=== PATIENT | male | born 1955 | race African-American/Black ===

== ENCOUNTER 2020-07-04 11:47 | Inpatient (IN) ==
[2020-07-04] MEDS ORDERED: SODIUM CHLORIDE 0.9% 1000ML 1,000 ML IV ONE (12:07)
[2020-07-04] MEDS ORDERED: DEXAMETHASONE SOD INJ 10 MG/ML VIAL IV ONE (12:07)
--- NOTE | 2020-07-04 12:12 | Emergency Department Note ---
Impression & Plan COVID-19, Acute respiratory failure with hypoxia, Community acquired pneumonia ED Provider Note NAME: ESTEFANIA [id number] DEON AGE: 64 SEX: M : 1955 ARRIVES VIA: Ambulance INFORMANT: Patient ED PROVIDER(S): Renato Bolton DO CHIEF COMPLAINT: Cough and shortness of HPI: Patient is a 64-year-old male who presents here for cough and shortness of breath. All of his symptoms started over a week ago Wednesday with several days of diffuse myalgias and arthralgias. On Wednesday he lost his taste and smell and started with a cough and some mild shortness of breath. This is gradually progressed. History of COPD. Was a previous smoker but has not smoked in the past several years. Denies any chest pain. Only has chest pain with coughing. Denies any belly pain nausea vomiting or diarrhea. No dysuria urgency or frequency. No other exacerbating remitting factors. ROS: See above HPI for pertinent positives & negatives. A total of 10 systems reviewed and were otherwise negative. PAST MEDICAL HISTORY:See Below PAST SURGICAL HISTORY:See Below FAMILY HISTORY:See Below SOCIAL HISTORY:See Below HOME MEDICATIONS:See Below ALLERGIES:See Below VITALS:See Below PHYSICAL EXAMINATION: GENERAL: Sitting up in bed, alert, ill-appearing, disheveled, persistent cough EYE EXAM: normal conjunctiva. OROPHARYNX: no exudate, no erythema, lips, buccal mucosa, and tongue normal and mucous membranes are moist NECK: supple, no nuchal rigidity, no adenopathy, non-tender LUNGS: Clear to auscultation. Normal chest wall mechanics HEART: no murmurs, S1 normal and S2 normal ABDOMEN: abdomen soft, non-tender, normo-active bowel sounds, no masses, no rebound or guarding. UPPER EXTREMITIES: upper extremities are grossly normal. LOWER EXTREMITIES: No pitting edema. Calves are equal bilateral with a small ulcer base the left heel NEURO EXAM: Normal sensorium, cranial nerves II-XII grossly intact, normal speech, no gross weakness of arms, no gross weakness of legs. MEDICAL DECISION MAKING: Patient is a 64-year-old prisoner who presents the ER for shortness of breath and a cough and loss of taste smell. Symptoms started Wednesday with diffuse myalgias and arthralgias. He is brought in by EMS. He is found to be hypoxic at 85% on room air. He is placed on nasal cannula. IV was established blood work is obtained. Labs show a mild leukopenia 4.7 thousand. No significant anemia. INR was unremarkable. VBG was unremarkable with pH of 7.4. BMP with a sodium 129. Glucose was elevated at 321. LFTs bilirubin and troponin was detectable but not positive. Lipase was normal. Patient was Covid positive. Chest x-ray with infiltrates. Patient was given IV fluids, Decadron, and antibiotics. He was updated bedside discussed with the hospitalist for further evaluation. Appropriate PPE was worn throughout the entire stay. Triage Nursing notes reviewed. Prior medical records reviewed Vital Signs: reviewed and remarkable for hypoxic Differential diagnosis: Differential diagnoses includes but is not limited to pneumonia, bronchitis, COPD/Asthma exacerbation, pneumothorax, pulmonary embolism, congestive heart failure, acute coronary syndrome ER treatment provided: See below Diagnostics interpreted by me: ECG: Sinus rhythm rate 82 Normal axis No PVCs Normal QTC at 429 Cardiac Monitoring: An order was placed for continuous cardiac monitoring. The monitor shows a rate of 85 with sinus rhythm. Laboratory studies: As stated above and show below. Imaging studies: Portable AP upright 1 view the chest shows infiltrates Consultation(s): Discussed the hospitalist for further evaluation ED COURSE: Procedures: none Critical Care: I have personally spent 50 minutes of critical care time in the direct management of this patient. This includes bedside care, interpretation of diagnostic studies, and testing, discussion with consultants, patient, and family members, and other required patient management activities. This 50 minutes is in excess of all separately billable procedures. Past Med/Surg History Medical History (Updated 07/04/20 @ 18:32 by Renato Bolton DO) Cellulitis of left foot COVID-19 HTN (hypertension) Hx of osteomyelitis left foot Hyperthyroidism Type 2 diabetes mellitus Surgical History S/P foot surgery, left Social History Smoking Status: Former smoker Do You Dip or Chew Tobacco: No; Hx Alcohol Use: No Hx Substance Use: No Preferred Language: Vietnamese Communication Ability: Effective Digester Hand Required: No Beliefs That Will Affect Care: None Current Living Situation: Other Current Living Situation Comment: Inmate Other Information That Helps Us Care for You: No Feels Safe at Home: Yes Assistive Devices: Oxygen - Continuous Allergies Allergies Allergy/AdvReac Type Severity Reaction Status Date / Time OC [place] Contradiction AdvReac Unknown Uncoded 07/04/20 14:10 Home Meds Home Medications Medication Instructions Recorded Confirmed amlodipine 10 mg PO DAILY 04/14/19 07/04/20 lisinopril 20 mg PO DAILY 07/04/20 07/04/20 Results & Data (ED) Vital Signs Vital Signs - 24 hr 07/04/20 12:04 07/04/20 12:06 Temperature 37.3 C Temperature Source Oral Pulse Rate 83 Respiratory Rate 22 Blood Pressure 150/92 H Blood Pressure Mean 111 Pulse Oximetry 86 L 95 Oxygen Delivery Method Room Air Nasal Cannula Oxygen Flow Rate 4 Sepsis Recent Fever Within 48 Hours No Sepsis New/Unexplained Change in Mental Status No Sepsis Action Taken by Nursing No Action Required Oxygen Flow Rate - Titration 4 Pulse Oximetry Post Tiitration 96 Laboratory Data Result diagrams: 07/04/20 12:17 07/04/20 12:17 Lab Results 07/04/20 07/04/20 07/04/20 Range/Units 12:00 12:00 12:17 WBC (4.8-10.8) K/uL RBC (4.7-6.1) M/uL Hgb (14.0-18.0) g/dL Hct (42-52) % MCV (80-100) fL MCH (25-34) pg MCHC (32-36) g/dL RDW Std Deviation (36.4-46.3) fL RDW Coeff of Domonique (11.5-14.5) % Plt Count (130-400) K/uL MPV (7.4-10.4) fL Immature Gran % (Auto) % Neut % (Auto) % Lymph % (Auto) % Mclean % (Auto) % Eos % (Auto) % Baso % (Auto) % Neut # (Auto) (1.4-6.5) K/uL Lymph # (Auto) (1.2-3.4) K/uL Mclean # (Auto) (0.11-0.59) K/uL Eos # (Auto) (0-0.5) K/uL Baso # (Auto) (0-0.2) K/uL Immature Gran # (Auto) (0.00-0.02) K/uL PT (9.0-12.0) Seconds INR (0.9-1.1) APTT (21.0-31.0) Seconds PTT Ratio VBG pH 7.40 (7.36-7.41) VBG pCO2 43 (38-50) mmHg VBG pO2 33 mmHg VBG HCO3 26 mmol/L VBG O2 Saturation 61.4 % VBG Base Excess 1.0 mEq/L Barometric Pressure 736.9 mm/Hg Sodium (136-145) mmol/L Potassium (3.5-5.1) mmol/L Chloride (98-107) mmol/L Carbon Dioxide (21-32) mmol/L Anion Gap (3-11) BUN (7-18) mg/dl Creatinine (0.6-1.4) mg/dl Est Cr Clr Drug Dosing ml/min Est GFR ( Amer) Est GFR (Non-Af Amer) BUN/Creatinine Ratio (10-20) Glucose (70-99) mg/dl Lactate (0.4-2.0) mmol/L Calcium (8.5-10.1) mg/dl Total Bilirubin (0.2-1) mg/dl AST (15-37) U/L ALT (12-78) U/L Alkaline Phosphatase (45-117) U/L Troponin I (0-0.045) ng/ml Total Protein (6.4-8.2) gm/dl Albumin (3.4-5.0) gm/dl Globulin (2.5-4.0) gm/dl Albumin/Globulin Ratio (0.9-2) Lipase (73-393) U/L Beta-Hydroxybutyric Acd (0.2-2.81) mg/dl Procalcitonin (0-0.5) ng/ml COVID-19 Eval Order Covid19 Done at [facility] COVID-19 PCR POSITIVE A* (Negative) 07/04/20 07/04/20 07/04/20 Range/Units 12:17 12:17 12:17 WBC 4.76 L (4.8-10.8) K/uL RBC 5.05 (4.7-6.1) M/uL Hgb 13.1 L (14.0-18.0) g/dL Hct 41.0 L (42-52) % MCV 81.2 (80-100) fL MCH 25.9 (25-34) pg MCHC 32.0 (32-36) g/dL RDW Std Deviation 37.7 (36.4-46.3) fL RDW Coeff of Domonique 12.6 (11.5-14.5) % Plt Count 192 (130-400) K/uL MPV 10.1 (7.4-10.4) fL Immature Gran % (Auto) 0.2 % Neut % (Auto) 60.3 % Lymph % (Auto) 31.9 % Mclean % (Auto) 7.4 % Eos % (Auto) 0.0 % Baso % (Auto) 0.2 % Neut # (Auto) 2.87 (1.4-6.5) K/uL Lymph # (Auto) 1.52 (1.2-3.4) K/uL Mclean # (Auto) 0.35 (0.11-0.59) K/uL Eos # (Auto) 0.00 (0-0.5) K/uL Baso # (Auto) 0.01 (0-0.2) K/uL Immature Gran # (Auto) 0.01 (0.00-0.02) K/uL PT 10.6 (9.0-12.0) Seconds INR 1.0 (0.9-1.1) APTT 27.2 (21.0-31.0) Seconds PTT Ratio 1.0 VBG pH (7.36-7.41) VBG pCO2 (38-50) mmHg VBG pO2 mmHg VBG HCO3 mmol/L VBG O2 Saturation % VBG Base Excess mEq/L Barometric Pressure mm/Hg Sodium (136-145) mmol/L Potassium (3.5-5.1) mmol/L Chloride (98-107) mmol/L Carbon Dioxide (21-32) mmol/L Anion Gap (3-11) BUN (7-18) mg/dl Creatinine (0.6-1.4) mg/dl Est Cr Clr Drug Dosing ml/min Est GFR ( Amer) Est GFR (Non-Af Amer) BUN/Creatinine Ratio (10-20) Glucose (70-99) mg/dl Lactate 2.3 H* (0.4-2.0) mmol/L Calcium (8.5-10.1) mg/dl Total Bilirubin (0.2-1) mg/dl AST (15-37) U/L ALT (12-78) U/L Alkaline Phosphatase (45-117) U/L Troponin I (0-0.045) ng/ml Total Protein (6.4-8.2) gm/dl Albumin (3.4-5.0) gm/dl Globulin (2.5-4.0) gm/dl Albumin/Globulin Ratio (0.9-2) Lipase (73-393) U/L Beta-Hydroxybutyric Acd (0.2-2.81) mg/dl Procalcitonin (0-0.5) ng/ml COVID-19 Eval Order COVID-19 PCR (Negative) 07/04/20 07/04/20 Range/Units 12:17 12:17 WBC (4.8-10.8) K/uL RBC (4.7-6.1) M/uL Hgb (14.0-18.0) g/dL Hct (42-52) % MCV (80-100) fL MCH (25-34) pg MCHC (32-36) g/dL RDW Std Deviation (36.4-46.3) fL RDW Coeff of Domonique (11.5-14.5) % Plt Count (130-400) K/uL MPV (7.4-10.4) fL Immature Gran % (Auto) % Neut % (Auto) % Lymph % (Auto) % Mclean % (Auto) % Eos % (Auto) % Baso % (Auto) % Neut # (Auto) (1.4-6.5) K/uL Lymph # (Auto) (1.2-3.4) K/uL Mclean # (Auto) (0.11-0.59) K/uL Eos # (Auto) (0-0.5) K/uL Baso # (Auto) (0-0.2) K/uL Immature Gran # (Auto) (0.00-0.02) K/uL PT (9.0-12.0) Seconds INR (0.9-1.1) APTT (21.0-31.0) Seconds PTT Ratio VBG pH (7.36-7.41) VBG pCO2 (38-50) mmHg VBG pO2 mmHg VBG HCO3 mmol/L VBG O2 Saturation % VBG Base Excess mEq/L Barometric Pressure mm/Hg Sodium 129 L (136-145) mmol/L Potassium 4.0 (3.5-5.1) mmol/L Chloride 97 L (98-107) mmol/L Carbon Dioxide 26 (21-32) mmol/L Anion Gap 6.0 (3-11) BUN 11 (7-18) mg/dl Creatinine 1.13 (0.6-1.4) mg/dl Est Cr Clr Drug Dosing 79.2 ml/min Est GFR ( Amer) 79.2 Est GFR (Non-Af Amer) 68.3 BUN/Creatinine Ratio 9.5 L (10-20) Glucose 321 H* (70-99) mg/dl Lactate (0.4-2.0) mmol/L Calcium 9.9 (8.5-10.1) mg/dl Total Bilirubin 0.4 (0.2-1) mg/dl AST 17 (15-37) U/L ALT 28 (12-78) U/L Alkaline Phosphatase 53 (45-117) U/L Troponin I 0.016 (0-0.045) ng/ml Total Protein 8.9 H (6.4-8.2) gm/dl Albumin 3.7 (3.4-5.0) gm/dl Globulin 5.2 H (2.5-4.0) gm/dl Albumin/Globulin Ratio 0.7 L (0.9-2) Lipase 138 (73-393) U/L Beta-Hydroxybutyric Acd 0.82 (0.2-2.81) mg/dl Procalcitonin < 0.05 (0-0.5) ng/ml COVID-19 Eval Order COVID-19 PCR (Negative) Administered Medications Insulin Aspart (Insulin Aspart 100 Units/Ml 3 Ml Pen) 0 units SC ACHS [place] Stop: 08/03/20 16:59 Last Admin: 07/04/20 17:57 Dose: 22 units Documented by: [id number] Cosigned by: [id number] Discontinued Medications Azithromycin (Azithromycin 250 Mg Tab) 500 mg PO NOW ONE Stop: 07/04/20 12:33 Last Admin: 07/04/20 13:26 Dose: 500 mg Documented by: [id number] Dexamethasone (Dexamethasone Sod Inj 10 Mg/Ml Vial) 6 mg IV NOW ONE Stop: 07/04/20 12:08 Last Admin: 07/04/20 12:30 Dose: 6 mg Documented by: [id number] Sodium Chloride (Nss 1000ml) 1,000 mls @ 999 mls/hr IV .Q1H1M ONE Stop: 07/04/20 13:07 Last Infusion: 07/04/20 14:16 Dose: 0 mls/hr Documented by: [id number] Admin: 07/04/20 12:30 Dose: 999 mls/hr Documented by: [id number] Ceftriaxone Sodium (Rocephin) 1,000 mg in 50 mls @ 100 mls/hr IV NOW STA Stop: 07/04/20 13:01 Last Infusion: 07/04/20 14:16 Dose: 0 mls/hr Documented by: [id number] Admin: 07/04/20 13:26 Dose: 100 mls/hr Documented by: [id number] Insulin Human NPH (Insulin Human Nph) 17 units SC 1700 ONE Stop: 07/04/20 17:01 Last Admin: 07/04/20 17:57 Dose: 17 units Documented by: [id number] Cosigned by: [id number] Insulin Human Regular (Novolin-R Insulin Per Unit Charge) 3 units IV NOW STA Stop: 07/04/20 13:09 Last Admin: 07/04/20 13:26 Dose: 3 units Documented by: [id number] Cosigned by: [id number] Discharge Plan Visit Data Chief Complaint: Shortness of Breath/Dyspnea Stated Complaint: SOB ED Provider: Renato Bolton Discharge Problem: COVID-19, Acute respiratory failure with hypoxia, Community acquired pneumonia Patient Disposition: Admitted As Inpatient Discharge Instructions Interventions: ED Discharge Assessment Last Done: 07/04/20 15:43 Discharge Problem: Community acquired pneumonia Qualifiers: Laterality: unspecified laterality Qualified Code(s): J18.9 - Pneumonia, unspecified organism
--- NOTE | 2020-07-04 12:31 | XRay Report ---
SINGLE VIEW CHEST CLINICAL HISTORY: Atypical chest pain. FINDINGS: An AP, portable, upright chest radiograph is obtained. No prior studies are available for c omparison at the time of dictation. The cardiomediastinal silhouette is top normal for projection. P atchy airspace consolidation is present at both lung bases. No large pleural effusion or pneumothorax is seen. The bony thorax is grossly intact. IMPRESSION: Patchy airspace consolidation is seen in the lower lungs bilaterally. Correlate clinicall y for evidence of an infectious/inflammatory pneumonitis. Radiographic follow-up to resolution is rec ommended. ACT 112: Negative or not required by law. Electronically signed by: Leo Andrea M.D. 07/04/2020 12:30 PM
[2020-07-04 12:32] LABS: Basophils # (auto) 0.01 K/uL (0-0.2); Basophils % (auto) 0.2 %; Hemoglobin 13.1 g/dL (14.0-18.0); Immature Granulocytes # (auto) 0.01 K/uL (0.00-0.02); Immature Granulocytes % (auto) 0.2 %; Lymphocytes # (auto) 1.52 K/uL (1.2-3.4); Lymphocytes % (auto) 31.9 %; Mean Corpuscular Hemoglobin 25.9 pg (25-34); Mean Corpuscular Volume 81.2 fL (80-100); Mean Platelet Volume 10.1 fL (7.4-10.4); Monocytes # (auto) 0.35 K/uL (0.11-0.59); Monocytes % (auto) 7.4 %; Neutrophils # (auto) 2.87 K/uL (1.4-6.5); Neutrophils % (auto) 60.3 %; Platelet Count 192 K/uL (130-400); RDW Coefficient of Variation 12.6 % (11.5-14.5); RDW Standard Deviation 37.7 fL (36.4-46.3); Red Blood Count 5.05 M/uL (4.7-6.1); White Blood Count 4.76 K/uL (4.8-10.8)
[2020-07-04] MEDS ORDERED: AZITHROMYCIN 250 MG TAB PO ONE (12:32)
[2020-07-04] MEDS ORDERED: cefTRIAXone SODIUM 1,000 MG/50 ML BAG IV STA (12:32)
[2020-07-04 12:33] LABS: Oxygen Saturation VBG 61.4 %; pH VBG 7.4 (7.36-7.41)
[2020-07-04 12:50] LABS: Partial Thromboplastin Time 27.2 Seconds (21.0-31.0); Prothrombin Time 10.6 Seconds (9.0-12.0)
[2020-07-04 13:01] LABS: Albumin Globulin Ratio 0.7 (0.9-2); Albumin Level 3.7 gm/dl (3.4-5.0); BUN Creatinine Ratio 9.5 (10-20); Bilirubin,Total 0.4 mg/dl (0.2-1); Calcium 9.9 mg/dl (8.5-10.1); Creatinine Clr Calc Pharmacy 79.2 ml/min; Est GFR (African American) 79.2; Est GFR (Non-African American) 68.3; Globulin 5.2 gm/dl (2.5-4.0); Total Protein 8.9 gm/dl (6.4-8.2); Troponin I 0.016 ng/ml (0-0.045)
[2020-07-04] MEDS ORDERED: NovoLIN-R INSULIN PER UNIT CHARGE IV STA (13:08)
--- NOTE | 2020-07-04 13:10 | Electrocardiogram Report ---
Test Reason : Blood Pressure : / mmHG Vent. Rate : 082 BPM Atrial Rate : 082 BPM P-R Int : 174 ms QRS Dur : 088 ms QT Int : 368 ms P-R-T Axes : 058 -07 007 degrees QTc Int : 429 ms Normal sinus rhythm Normal ECG No previous ECGs available Confirmed by Jc Stack ([id number]) on 07/04/2020 1:10:31 PM Referred By: REFERRED SELF Confirmed By:Jc Stack
[2020-07-04 13:17] LABS: Beta-Hydroxybutyrate 0.82 mg/dl (0.2-2.81)
--- NOTE | 2020-07-04 13:29 | History & Physical Report ---
Date of Service July 04, 2020 Assessment & Plan (1) COVID-19: Dexamethasone 6 mg IV daily for 10 days Remdesivir Patient reluctant to have convalescent plasma given what he has his previously read. Information sheet discussed with patient and he will get back to us to decide. (2) Acute respiratory failure with hypoxia: Aim O2 sats > 90% Procalcitonin negative. No fevers. Will discontinue further antibiotics at this time. (3) Non-healing open wound of heel: Local wound care. No surrounding cellulitis. Will request outpatient MRI which he recently had to assess for osteomyelitis (4) Type 2 diabetes mellitus: Unclear diagnosis from [facility] as not on medication for this. He notes his HbA1c in September was 6.4. HbA1C 14.4 06/27 Consult pharmacy for glycemic control and repeat HbA1C in AM (5) DVT prophylaxis: Lovenox 40 mg SQ twice daily Admission and Anticipated Discharge Date Admission Date: 07/04/2020 History of Present Illness Chief Complaint: Shortness of breath Primary Care Provider: [facility] Dilan Rojas is a 64-year-old male from [facility] with shortness of breath and hypoxia. Symptoms started 8 days ago with generalized myalgias and shortness of breath. 5 days ago he started having loss of taste and smell. He has been self isolating at the custodial from 8 days ago. Progressively getting worse symptoms over this time period and he was noted to be hypoxic at the custodial therefore was transported to the ER for evaluation. He denies any fever, chills, productive cough, abdominal pain, chest pain, diarrhea. He reports a possible history of T2DM which is also on his medical chart. However he is not on any medication for this. When discussed with [facility] they confirmed his HbA1C in September of 6.4 but recently on 06/27 he had a repeat test showing HbA1C 14.4 (I did confirm this was not a hemoglobin on multiple occasions). He is a former smoker with possible diagnosis of COPD although is not on any maintenance inhalers for this. He has noticed no wheezing. He has a non-healing ulcer on the bottom of his left foot although reports this is much improved with just his local wound care he performs himself. Recently he had an MRI to assess for osteomyelitis although is still awaiting the result for this. In the ER he tested positive for SARS-COV-2. CXR concerning for patchy airspaces b/l. Allergies Allergy/AdvReac Type Severity Reaction Status Date / Time OC [place] Contradiction AdvReac Unknown Uncoded 07/04/20 14:10 Home Medications Home Medications Medication Instructions Recorded Confirmed Type amlodipine 10 mg PO DAILY 04/14/19 07/04/20 History lisinopril 20 mg PO DAILY 07/04/20 07/04/20 History Past Med/Surg History Medical History (Updated 07/05/20 @ 12:05 by Ramin Garza MD) Cellulitis of left foot COVID-19 Hepatitis C HTN (hypertension) Hx of osteomyelitis left foot Hyperthyroidism Type 2 diabetes mellitus Surgical History S/P foot surgery, left Social History Smoking Status: Former smoker Do You Dip or Chew Tobacco: No; Hx Alcohol Use: No Hx Substance Use: No Preferred Language: Luxembourgish Communication Ability: Effective Training Instructor Required: No Beliefs That Will Affect Care: None marital status: Current Living Situation: Other Current Living Situation Comment: Inmate Other Information That Helps Us Care for You: No Feels Safe at Home: Yes Assistive Devices: Oxygen - Continuous and Walker Review of Systems Review of Systems: All systems reviewed & are unremarkable except as noted in HPI & below Physical Exam Constitutional: well developed and well nourished; no acute distress Eyes: + anicteric sclerae; normal pupil size Neck: trachea midline, no thyromegaly Respiratory: + retractions, + uses accessory muscles, + cough and able to speak in complete sentences Auscultation: lungs clear to auscultation bilaterally Cardiovascular: Rate/Rhythm: regular rate and regular rhythm Heart Sounds: no murmur Gastrointestinal (Abdomen): normal bowel sounds, soft, nontender, no hepatosplenomegaly Musculoskeletal: no cyanosis or clubbing, extremities motor strength 5/5 Skin: 1 cm left heel ulcer, stage IV, no surrounding cellulitis Neurologic: moves all extremities and awake; not confused Psychiatric: A+Ox3, euthymic affect Results & Data Results & Data ([facility]) Vital Signs (Past 12 Hours) Vital Signs Temp Pulse Resp BP Pulse Ox 07/04/20 12:06 95 07/04/20 12:04 37.3 C 83 22 150/92 H 86 L Diagnostic Findings SINGLE VIEW CHEST IMPRESSION: Patchy airspace consolidation is seen in the lower lungs bilaterally. Correlate clinically for evidence of an infectious/inflammatory pneumonitis. Radiographic follow-up to resolution is recommended. Medications Administered ER medications given: Ceftriaxone 1 g IV Dexamethasone 6 mg IV NSS bolus 1 L Azithromycin 500 mg p.o. ECG Indication: SOB/dyspnea Rate (beats per minute): 82 Rhythm: normal sinus Findings: no acute ischemic change Comparison ECG Date: no prior available Code Status & VTE Plan Code Status Full VTE Prophylaxis Plan VTE Prophylaxis will be ordered: Yes PG Care Time/CCT Total # of Minutes Spent Total Time Spent with Patient: Total time spent is greater than 50% in coordination of care (as documented) at patient's floor/unit and/or counseling patient: Coding Level of Care Code 93751 Initial Inpt Care Lvl 3 Diagnoses COVID-19 U07.1 Acute respiratory failure with hypoxia J96.01 Non-healing open wound of heel S91.309A Type 2 diabetes mellitus E11.9 DVT prophylaxis Z29.9
[2020-07-04] MEDS ORDERED: ACETAMINOPHEN 325 MG TAB PO PRN (16:15)
[2020-07-04] MEDS ORDERED: ONDANSETRON INJ 2 MG/ML 2 ML VIAL IV PRN (16:15)
[2020-07-04] MEDS ORDERED: ALUMINUM/MAGNESIUM SUSP 30 ML UDC PO PRN (16:15)
[2020-07-04] MEDS ORDERED: POLYETHYLENE (MIRALAX) 17 GM PACK PO PRN (16:15)
[2020-07-04] MEDS ORDERED: PHARMACY GLYCEMIC MGMT CONSULT PRN (16:40)
[2020-07-04] MEDS ORDERED: INSULIN HUMAN NPH SC ONE (17:00)
[2020-07-04] MEDS: INSULIN ASPART 100 UNITS/ML 3 ML PEN SC SCH ×2 (17:57→20:50)
[2020-07-04] MEDS ORDERED: REMDESIVIR 200 MG in SODIUM CHLORIDE 0.9% 210 ML IV ONE (20:45)
[2020-07-04] MEDS: SODIUM CHLORIDE 0.9% 10ML FLUSH IV SCH (21:11)
[2020-07-04] MEDS ORDERED: INSULIN HUMAN REGULAR PER UNIT 10 UNITS in SYRINGE 9.9 ML IV ONE (21:30)
[2020-07-04] MEDS ORDERED: INSULIN ASPART 100 UNITS/ML 3 ML PEN SC ONE (21:30)
[2020-07-04] MEDS: ENOXAPARIN INJ 40 MG/0.4 ML SYR SQ SCH (21:42)
[2020-07-04] MEDS ORDERED: GLUCOSE 10 TABS/TUBE PO PRN (22:00)
[2020-07-04] MEDS ORDERED: GLUCOSE 40% GEL 15 GM TUBE PO PRN (22:00)
[2020-07-04] MEDS ORDERED: DEXTROSE 50% 50 ML SYRINGE IV PRN (22:00)
[2020-07-04] MEDS ORDERED: GLUCAGON FOR INJ 1 MG VIAL IM PRN (22:00)
[2020-07-04] MEDS ORDERED: CARBOHYDRATES FOR HYPOGLYCEMIA PO PRN (22:00)
[2020-07-05] MEDS: INSULIN ASPART 100 UNITS/ML 3 ML PEN SC SCH ×7 (00:36→21:20)
[2020-07-05 05:57] LABS: Basophils # (auto) 0.01 K/uL (0-0.2); Basophils % (auto) 0.2 %; Hematocrit (blood only) 41.4 % (42-52); Hemoglobin 13.5 g/dL (14.0-18.0); Immature Granulocytes # (auto) 0.01 K/uL (0.00-0.02); Immature Granulocytes % (auto) 0.2 %; Lymphocytes # (auto) 0.95 K/uL (1.2-3.4); Lymphocytes % (auto) 21.4 %; Mean Corpuscular Hgb Conc 32.6 g/dL (32-36); Mean Corpuscular Volume 79.8 fL (80-100); Mean Platelet Volume 9.5 fL (7.4-10.4); Monocytes # (auto) 0.44 K/uL (0.11-0.59); Monocytes % (auto) 9.9 %; Neutrophils # (auto) 3.03 K/uL (1.4-6.5); Neutrophils % (auto) 68.3 %; Platelet Count 214 K/uL (130-400); RDW Coefficient of Variation 12.5 % (11.5-14.5); RDW Standard Deviation 36.2 fL (36.4-46.3); Red Blood Count 5.19 M/uL (4.7-6.1); White Blood Count 4.44 K/uL (4.8-10.8)
[2020-07-05 06:19] LABS: D Dimer 520 ug/L FEU (0-500)
[2020-07-05 06:23] LABS: Alanine Aminotransferase 26 U/L (12-78); Albumin Globulin Ratio 0.6 (0.9-2); Albumin Level 3.4 gm/dl (3.4-5.0); Alkaline Phosphatase 46 U/L (45-117); Aspartate Aminotransferase 20 U/L (15-37); BUN Creatinine Ratio 15.8 (10-20); Bilirubin,Total 0.3 mg/dl (0.2-1); Blood Urea Nitrogen 14 mg/dl (7-18); C Reactive Protein 6.05 mg/dl (0-0.29); Calcium 9.7 mg/dl (8.5-10.1); Carbon Dioxide 25 mmol/L (21-32); Chloride 105 mmol/L (98-107); Creatine Kinase 237 U/L (39-308); Creatinine Clr Calc Pharmacy 97.6 ml/min; Est GFR (African American) 104.2; Est GFR (Non-African American) 89.9; Globulin 5.3 gm/dl (2.5-4.0); Glucose 127 mg/dl (70-99); Potassium 4.1 mmol/L (3.5-5.1); Sodium 136 mmol/L (136-145); Total Protein 8.7 gm/dl (6.4-8.2); Troponin I < 0.015 ng/ml (0-0.045)
[2020-07-05 08:46] LABS: Estimated Average Glucose 387 mg/dl; Hemoglobin A1C 15.1 % (4.5-5.6)
[2020-07-05] MEDS ORDERED: INSULIN HUMAN NPH SC SCH (09:00)
[2020-07-05] MEDS ORDERED: dexAMETHasone 6 MG in SYRINGE 0 ML IV SCH (09:00)
--- NOTE | 2020-07-05 09:07 | Pharmacy Report ---
Glycemic Control Consultation - Date of Service July 05, 2020 - Scope Scope: Glycemic Pharmacist consulted for glycemic control and to write orders per [facility] inpatient glycemic control protocol. - Objective Weight: 95 kg Accuchecks BSG (last 24hrs): 07/04/20 07/04/20 07/04/20 12:17 14:51 16:34 Glucose 321 H* POC Glucose 273 H 351 H* 07/04/20 07/04/20 07/04/20 16:52 20:27 20:29 Glucose POC Glucose 352 H* 346 H* 362 H* 07/04/20 07/05/20 07/05/20 23:32 04:06 05:45 Glucose 127 H POC Glucose 110 H 118 H 07/05/20 08:22 Glucose POC Glucose 133 H Laboratory Data (last 24hrs): 07/04/20 07/05/20 12:17 05:45 Potassium 4.0 4.1 Carbon Dioxide 26 25 Anion Gap 6.0 6.0 Creatinine 1.13 0.90 Est Cr Clr Drug Dosing 79.2 97.6 Beta-Hydroxybutyric Acd 0.82 HbA1c: Hemoglobin A1c 15.1 % (4.5-5.6) H 07/05/20 05:45 - Recent Pertinent Medications Outpatient Anti-diabetic Regimen: * N/A * A1c = 15.1 % (07/05/20) The patient is currently receiving: * Basal insulin: NPH 17 units SC x 1 last evening * Correctional Insulin: Novolog Correction per scale ACHS Goal Range: Low 120 mg/dL - High 150 mg/dL Correction Factor: 10 mg/dL/unit * Prandial insulin: Per carb ratio of 1 unit per 5 grams CHO consumed Risk Factors for Insulin Resistance: * Steroids: Dexamethasone 6 mg IV daily * Infection: COVID-19 pneumonia - Remdesivir * Diet: T2DM - Assessment & Plan Assessment & Plan: ASSESSMENT: * SR is a 64 year old male from [facility] - who presented with shortness of breath/hypoxia and subsequently diagnosed with COVID-19 pneumonia * Currently ordered daily remdesivir and IV dexamethasone 6 mg (to be converted to PO dexamethasone tomorrow) * Patient reports possible history of T2DM for which he takes no medications * Per H&P, HbA1c from September 2019 was 6.4% * However, HbA1c today is 15.1% - patient will require insulin upon discharge * BSGs significantly elevated yesterday, 273, 351, and 346 mg/dL * Most likely related to illness and IV dexamethasone * Patient received 80 units of insulin yesterday (50 units of SC Novolog, 17 units of NPH, and 13 units of IV regular insulin) PLAN FOR INPATIENT GLYCEMIC CONTROL: * Basal insulin * NPH 35 units (~0.4 units/kg) SQ daily with IV dexamethasone * Will follow BSGs today - consider BID dosing of NPH if unsatisfactory * Bolus insulin - lower goal range, change to weight-based stress of 3 dosing * NovoLog per scale ACHS or Q6hrs while NPO * Goal Range: Low 110 mg/dL - High 140 mg/dL * Correction Factor: 15 mg/dL/unit * Nutritional / Prandial insulin per carb ratio of 1 unit per 5 grams CHO consumed * Please note that the plan above was derived based on current level of insulin resistance and hospital stress. These recommendations are appropriate for inpatient admission only. Plan of care upon discharge will need to be reassessed to avoid potential outpatient hypo/hyperglycemia. Thank you.
[2020-07-05] MEDS: ENOXAPARIN INJ 40 MG/0.4 ML SYR SQ SCH ×2 (09:09→21:19)
--- NOTE | 2020-07-05 12:20 | Hospitalist Progress Note ---
Date of Service July 05, 2020 Assessment & Plan (1) COVID-19: Covid-19 positive on 07/04. Would be considered a "severe" case given his hypoxemia. - Started dexamethasone 6 mg daily for 10 days (will switch to PO today). - Remdesivir x 5 days. - Patient declined convalescent plasma for me on 07/05. - Supplemental O2 as needed (2) Acute respiratory failure with hypoxia: Procalcitonin negative. No fevers. - Aim O2 sats > 90%. - Hold antibiotics at this time. (3) Type 2 diabetes mellitus: A1c was 15.1% this admission. He reports his HbA1c in September was 6.4%, though this is a huge jump to his present one. - Pharmacy consulted for glycemic control while on steroids - blood sugars have generally been well-controlled in the last 24 hours. (4) Non-healing open wound of heel: No surrounding cellulitis. - Local wound care. - Awaiting outpatient MRI (5) DVT prophylaxis: Lovenox 40 mg SQ twice daily Admission and Anticipated Discharge Date Admission Date: July 04, 2020 Subjective Breathing is stable today. No major changes. He does have some cramping in his legs which he attributes to just having to sit in bed which he is not used to. Reports no fevers/chills, chest pain, abdominal pain, nausea, or vomiting. Physical Exam Constitutional: WD/WN, vitals as above Eyes: EOM intact bilaterally; no conjunctival abnormality ENMT: external ear and nose normal, oropharynx normal Neck: trachea midline, no thyromegaly normal visual inspection Respiratory: no respiratory distress and not tachypneic Auscultation: + crackles (Mild); no wheezes Cardiovascular: RRR, no murmur, no edema Gastrointestinal (Abdomen): Inspection/Auscultation: abdomen normal to inspection; abdomen not distended Musculoskeletal: no cyanosis or clubbing, extremities motor strength 5/5 Skin: no rashes, warm and dry Neurologic: moves all extremities and awake Psychiatric: Orientation: alert, oriented to person and cooperative Results & Data Results & Data ([facility]) Vital Signs (Past 12 Hours) Vital Signs Temp Pulse Resp BP Pulse Ox 07/05/20 08:17 36.8 C 77 16 146/91 H 90 07/05/20 06:20 85 18 91 07/05/20 01:50 88 94 PG Care Time/CCT Total # of Minutes Spent Total Time Spent with Patient: Total time spent is greater than 50% in coordination of care (as documented) at patient's floor/unit and/or counseling patient: Coding Level of Care Code 50595 Subseq Hosp Care Lvl 3 Diagnoses COVID-19 U07.1 Acute respiratory failure with hypoxia J96.01 Type 2 diabetes mellitus E11.9 Non-healing open wound of heel S91.309A DVT prophylaxis Z29.9
[2020-07-05] MEDS ORDERED: INSULIN ASPART 100 UNITS/ML 3 ML PEN SC ONE (17:45)
[2020-07-05] MEDS ORDERED: INSULIN HUMAN REGULAR PER UNIT 10 UNITS in SYRINGE 9.9 ML IV ONE (17:45)
[2020-07-05] MEDS ORDERED: INSULIN HUMAN NPH SC ONE (18:00)
[2020-07-05] MEDS: REMDESIVIR 100 MG in SODIUM CHLORIDE 0.9% 230 ML IV SCH (20:58)
[2020-07-06] MEDS: SODIUM CHLORIDE 0.9% 10ML FLUSH IV SCH ×2 (00:06→20:58)
[2020-07-06] MEDS: INSULIN ASPART 100 UNITS/ML 3 ML PEN SC SCH ×6 (00:45→20:58)
[2020-07-06 07:40] LABS: Basophils # (auto) 0.01 K/uL (0-0.2); Basophils % (auto) 0.1 %; Hematocrit (blood only) 40.9 % (42-52); Hemoglobin 13.2 g/dL (14.0-18.0); Immature Granulocytes # (auto) 0.01 K/uL (0.00-0.02); Immature Granulocytes % (auto) 0.1 %; Lymphocytes # (auto) 1.35 K/uL (1.2-3.4); Lymphocytes % (auto) 17.6 %; Mean Corpuscular Hemoglobin 25.5 pg (25-34); Mean Corpuscular Hgb Conc 32.3 g/dL (32-36); Mean Corpuscular Volume 79.1 fL (80-100); Mean Platelet Volume 10.2 fL (7.4-10.4); Monocytes % (auto) 10.4 %; Neutrophils # (auto) 5.49 K/uL (1.4-6.5); Neutrophils % (auto) 71.8 %; Platelet Count 279 K/uL (130-400); RDW Coefficient of Variation 12.7 % (11.5-14.5); RDW Standard Deviation 36.4 fL (36.4-46.3); Red Blood Count 5.17 M/uL (4.7-6.1); White Blood Count 7.66 K/uL (4.8-10.8)
[2020-07-06 07:47] LABS: Albumin Level 3.2 gm/dl (3.4-5.0); BUN Creatinine Ratio 20.1 (10-20); Calcium 9.5 mg/dl (8.5-10.1); Creatinine Clr Calc Pharmacy 105.8 ml/min; Est GFR (African American) 107.8; Potassium 4.3 mmol/L (3.5-5.1)
[2020-07-06 07:50] LABS: Albumin Globulin Ratio 0.6 (0.9-2); Bilirubin,Total 0.3 mg/dl (0.2-1); Globulin 5.3 gm/dl (2.5-4.0); Total Protein 8.5 gm/dl (6.4-8.2)
[2020-07-06] MEDS ORDERED: INSULIN HUMAN NPH SC SCH (09:00)
[2020-07-06] MEDS: ENOXAPARIN INJ 40 MG/0.4 ML SYR SQ SCH ×2 (09:17→20:57)
[2020-07-06] MEDS: dexAMETHasone 4 MG TAB PO SCH (09:19)
--- NOTE | 2020-07-06 10:51 | Pharmacy Report ---
Pharmacy Glycemic Short Note 2 - Date of Service July 06, 2020 - Glycemic Short BSG Results (Last 24 hours): 07/05/20 07/05/20 07/05/20 12:54 13:02 17:12 Glucose POC Glucose 330 H* 340 H* 358 H* 07/05/20 07/05/20 07/06/20 17:13 20:01 00:29 Glucose POC Glucose 332 H* 283 H 288 H 07/06/20 07/06/20 07/06/20 04:37 06:50 07:33 Glucose 150 H POC Glucose 141 H 127 H OUTPATIENT ANTIDIABETIC REGIMEN: * N/A * A1c = 15.1 % (07/05/20) Risk Factors for Insulin Resistance: * Steroids: Dexamethasone 6 mg IV daily * Infection: COVID-19 pneumonia - Remdesivir * Diet: T2DM ASSESSMENT: * SR is a 64 year old male from [facility] who presented with shortness of breath/hypoxia and subsequently diagnosed with COVID-19 pneumonia * Currently ordered remdesivir and dexamethasone 6 mg PO daily * Patient is currently receiving an average of 136 units of insulin per day: * 50 units of basal insulin * 86 units of prandial/correctional insulin + 10 unit IV bous * BSGs: 133, 330, 323, 283, 288 mg/dL * Risk factors for insulin resistance remain fairly stable. Dexamethasone was transitioned from IV to PO starting this AM. This may lead to decreased post prandial needs overall, however I anticipate significant steroid induced hyperglycemia to continue. * Continue tight Novolog parameters per patient was poorly controlled yesterday * Fasting BSG of 127 mg/dL is at goal. Continue weight based NPH. PLAN FOR INPATIENT GLYCEMIC CONTROL: * Hold outpatient oral diabetes medications * Basal insulin * NPH 30 units SQ with breakfast * NPH 15-20 units SQ with dinner * Bolus insulin * NovoLog per scale ACHS or Q6hrs while NPO * Goal Range: Low 110 mg/dL - High 140 mg/dL * Correction Factor: 12 mg/dL/unit * Nutritional / Prandial insulin per carb ratio of 1 unit per 4 grams CHO consumed PLAN FOR DISCHARGE: A1c = 15.1% (07/05/20) A1c is greater than or equal to 10%: consider triple therapy with metformin + basal insulin + prandial insulin. Recommend: * Metformin XR 500mg PO daily with evening meal. Typically the XR formulation of metformin is better tolerated than the immediate release formulation. Continue to titrate metformin dosing upwards as recommended. Dosage increases should be made in increments of 500 mg weekly, up to 2,000 mg/day PO, given in divided doses. Doses above 2000 mg/day may be better tolerated if divided and given 3 times per day with meals. 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 These recommendations are appropriate for inpatient admission only. Plan of care upon discharge will need to be reassessed to avoid potential outpatient hypo/hyperglycemia. Thank you.
--- NOTE | 2020-07-06 13:27 | Hospitalist Progress Note ---
Date of Service July 06, 2020 Assessment & Plan (1) COVID-19: Covid-19 positive on 07/04. Would be considered a severe case given his hypoxemia. - Started dexamethasone 6 mg daily for 10 days (End date: 07/14/2020). - Remdesivir x 5 days. - Patient declined convalescent plasma for me on 07/05 & 07/06. - Supplemental O2 as needed - Discussed self-proning with the patient as his O2 was 76% on room air and only up to 89% on 10L [place]. He will need the guards to unlock him. He seemed s omewhat open to the idea. I encouraged him to do so and discussed it with the guards. (2) Acute respiratory failure with hypoxia: Procalcitonin negative. No fevers. - Aim O2 sats > 90%. - Hold antibiotics at this time. (3) Type 2 diabetes mellitus: A1c was 15.1% this admission. He reports his HbA1c in September was 6.4%, though this is a huge jump to his present one. - Pharmacy consulted for glycemic control while on steroids - blood sugars have generally been a bit high in the last 24 hours. (4) Non-healing open wound of heel: No surrounding cellulitis. - Local wound care. - Awaiting outpatient MRI (5) DVT prophylaxis: Lovenox 40 mg SQ twice daily per Covid protocol. Admission and Anticipated Discharge Date Admission Date: July 04, 2020 Subjective Minimal cough. No real subjective shortness of breath. Again reports the cramping that he attributes to being stuck in bed. Reports no fevers/chills, chest pain, abdominal pain, nausea, or vomiting. Physical Exam Constitutional: WD/WN, vitals as above Eyes: EOM intact bilaterally; no conjunctival abnormality ENMT: external ear and nose normal, oropharynx normal Neck: trachea midline, no thyromegaly normal visual inspection Respiratory: no respiratory distress and not tachypneic Auscultation: + crackles (Mild); no wheezes Cardiovascular: RRR, no murmur, no edema Gastrointestinal (Abdomen): Inspection/Auscultation: abdomen normal to inspec tion; abdomen not distended Musculoskeletal: no cyanosis or clubbing, extremities motor strength 5/5 Skin: no rashes, warm and dry Neurologic: moves all extremities and awake Psychiatric: Orientation: alert, oriented to person and cooperative Results & Data Results & Data ([facility]) Vital Signs (Past 12 Hours) Vital Signs Temp Pulse Resp BP Pulse Ox 07/06/20 07:51 36.3 C L 62 20 141/81 H 88 L PG Care Time/CCT Total # of Minutes Spent Total Time Spent with Patient: Total time spent is greater than 50% in coordination of care (as documented) at patient's floor/unit and/or counseling patient: Coding Level of Care Code 85364 Subseq Hosp Care Lvl 2 Diagnoses COVID-19 U07.1 Acute respiratory failure with hypoxia J96.01 Type 2 diabetes mellitus E11.9 Non-healing open wound of heel S91.309A DVT prophylaxis Z29.9
[2020-07-06] MEDS ORDERED: INSULIN HUMAN NPH SC ONE (17:00)
[2020-07-06] MEDS: REMDESIVIR 100 MG in SODIUM CHLORIDE 0.9% 230 ML IV SCH (20:56)
[2020-07-07] MEDS ORDERED: INSULIN ASPART 100 UNITS/ML 3 ML PEN SC SCH
[2020-07-07 07:10] LABS: Basophils # (auto) 0.01 K/uL (0-0.2); Basophils % (auto) 0.1 %; Hemoglobin 13.2 g/dL (14.0-18.0); Immature Granulocytes # (auto) 0.05 K/uL (0.00-0.02); Immature Granulocytes % (auto) 0.5 %; Lymphocytes # (auto) 1.83 K/uL (1.2-3.4); Mean Corpuscular Hemoglobin 26.2 pg (25-34); Mean Corpuscular Hgb Conc 32.2 g/dL (32-36); Mean Corpuscular Volume 81.3 fL (80-100); Mean Platelet Volume 10.1 fL (7.4-10.4); Monocytes # (auto) 0.87 K/uL (0.11-0.59); Monocytes % (auto) 9.5 %; Neutrophils # (auto) 6.38 K/uL (1.4-6.5); Neutrophils % (auto) 69.9 %; Platelet Count 324 K/uL (130-400); RDW Coefficient of Variation 12.9 % (11.5-14.5); RDW Standard Deviation 38.5 fL (36.4-46.3); Red Blood Count 5.04 M/uL (4.7-6.1); White Blood Count 9.14 K/uL (4.8-10.8)
[2020-07-07 07:45] LABS: Albumin Level 3.1 gm/dl (3.4-5.0); BUN Creatinine Ratio 20.3 (10-20); Calcium 9.8 mg/dl (8.5-10.1); Creatinine Clr Calc Pharmacy 107.1 ml/min; Est GFR (African American) 108.3; Est GFR (Non-African American) 93.5; Potassium 4.4 mmol/L (3.5-5.1)
[2020-07-07 07:48] LABS: Albumin Globulin Ratio 0.6 (0.9-2); Bilirubin,Total 0.3 mg/dl (0.2-1); Total Protein 8.1 gm/dl (6.4-8.2)
[2020-07-07] MEDS: INSULIN ASPART 100 UNITS/ML 3 ML PEN SC SCH ×4 (08:31→21:12)
[2020-07-07] MEDS: dexAMETHasone 4 MG TAB PO SCH (08:32)
[2020-07-07] MEDS: ENOXAPARIN INJ 40 MG/0.4 ML SYR SQ SCH ×3 (08:33→21:12)
[2020-07-07] MEDS: INSULIN HUMAN NPH SC SCH (08:36)
--- NOTE | 2020-07-07 12:36 | Hospitalist Progress Note ---
Date of Service July 07, 2020 Assessment & Plan (1) COVID-19: Covid-19 positive on 07/04. Would be considered a severe case given his hypoxemia. - Started dexamethasone 6 mg daily for 10 days (End date: 07/14/2020). - Remdesivir x 5 days. (End: 07/08) - Patient declined convalescent plasma for me on 07/05 & 07/06. - Supplemental O2 as needed - Improving SpO2 on room air. Now only down to 85% on room air and feels fine. Will trial nasal cannula to see if we can start to wean O2. (2) Acute respiratory failure with hypoxia: Procalcitonin negative. No fevers. - Aim O2 sats > 90%. - Hold antibiotics at this time. (3) Type 2 diabetes mellitus: A1c was 15.1% this admission. He reports his HbA1c in September was 6.4%, though this is a huge jump to his present one. - Pharmacy consulted for glycemic control while on steroids - blood sugars have generally been a bit high in the last 24 hours. (4) Non-healing open wound of heel: No surrounding cellulitis. - Local wound care. - Awaiting outpatient MRI (5) DVT prophylaxis: Lovenox 40 mg SQ twice daily per Covid protocol. Admission and Anticipated Discharge Date Admission Date: July 04, 2020 Subjective Feels great today. No major concerns. No cough and no shortness of breath. Just feels he is "losing ground" by being stuck in bed. Reports no fevers/chills, chest pain, shortness of breath, abdominal pain, nausea, or vomiting. Physical Exam Constitutional: WD/WN, vitals as above Eyes: EOM intact bilaterally; no conjunctival abnormality ENMT: external ear and nose normal, oropharynx normal Neck: trachea midline, no thyromegaly normal visual inspection Respiratory: no respiratory distress and not tachypneic Auscultation: no crackles and no wheezes Cardiovascular: RRR, no murmur, no edema Gastrointestinal (Abdomen): Inspection/Auscultation: abdomen normal to inspection; abdomen not distended Musculoskeletal: no cyanosis or clubbing, extremities motor strength 5/5 Skin: no rashes, warm and dry Neurologic: moves all extremities and awake Psychiatric: Orientation: alert, oriented to person and cooperative Results & Data Results & Data ([place]) Vital Signs (Past 12 Hours) Vital Signs Temp Pulse Resp BP Pulse Ox 07/07/20 07:51 36.6 C 75 20 178/90 H 91 PG Care Time/CCT Total # of Minutes Spent Total Time Spent with Patient: Total time spent is greater than 50% in coordination of care (as documented) at patient's floor/unit and/or counseling patient: Coding Level of Care Code 97650 Subseq Hosp Care Lvl 2 Diagnoses COVID-19 U07.1 Acute respiratory failure with hypoxia J96.01 Type 2 diabetes mellitus E11.9 Non-healing open wound of heel S91.309A DVT prophylaxis Z29.9
--- NOTE | 2020-07-07 13:59 | Pharmacy Report ---
Pharmacy Glycemic Short Note 2 - Date of Service July 07, 2020 - Glycemic Short BSG Results (Last 24 hours): 07/06/20 07/06/20 07/06/20 16:18 20:10 23:20 Glucose POC Glucose 185 H 229 H 129 H 07/07/20 07/07/20 07/07/20 05:24 07:07 11:21 Glucose 122 H POC Glucose 112 H 197 H OUTPATIENT ANTIDIABETIC REGIMEN: * N/A * A1c = 15.1 % (07/05/20) Risk Factors for Insulin Resistance: * Steroids: Dexamethasone 6 mg IV daily * Infection: COVID-19 pneumonia - Remdesivir * Diet: T2DM ASSESSMENT: 07/07: * Patient is currently receiving an average of 134 units of insulin per day: * 45 units of basal insulin * 89 units of prandial/correctional insulin * BSGs: 127, 282, 185, 229, 129 mg/dL * Risk factors for insulin resistance remain stable. * Fasting BSG of 112 mg/dL is at goal. Continue weight based NPH. * Post prandial BSGs greatly improved compared to previous days but continue to fluctuate * increase AM dose of NPH to 0.4 units/kg * slightly decrease PM NPH since overnight/AM control looked quite good 07/06: * SR is a 64 year old male from [facility] who presented with shortness of breath/hypoxia and subsequently diagnosed with COVID-19 pneumonia * Currently ordered remdesivir and dexamethasone 6 mg PO daily * Patient is currently receiving an average of 136 units of insulin per day: * 50 units of basal insulin * 86 units of prandial/correctional insulin + 10 unit IV bous * BSGs: 133, 330, 323, 283, 288 mg/dL * Risk factors for insulin resistance remain fairly stable. Dexamethasone was transitioned from IV to PO starting this AM. This may lead to decreased post prandial needs overall, however I anticipate significant steroid induced hyperglycemia to continue. * Continue tight Novolog parameters per patient was poorly controlled yesterday * Fasting BSG of 127 mg/dL is at goal. Continue weight based NPH. PLAN FOR INPATIENT GLYCEMIC CONTROL: * Basal insulin * NPH 40 units SQ with breakfast * NPH 0-10 units SQ with dinner (10 units for BSG > 180) * Bolus insulin * NovoLog per scale ACHS or Q6hrs while NPO * Goal Range: Low 110 mg/dL - High 140 mg/dL * Correction Factor: 12 mg/dL/unit * Nutritional / Prandial insulin per carb ratio of 1 unit per 3.5 grams CHO consumed PLAN FOR DISCHARGE: A1c = 15.1% (07/05/20) A1c is greater than or equal to 10%: consider triple therapy with metformin + basal insulin + prandial insulin. Recommend: * Metformin XR 500mg PO daily with evening meal. Typically the XR formulation of metformin is better tolerated than the immediate release formulation. Continue to titrate metformin dosing upwards as recommended. Dosage increases should be made in increments of 500 mg weekly, up to 2,000 mg/day PO, given in divided doses. Doses above 2000 mg/day may be better tolerated if divided and given 3 times per day with meals. Max: 2,550 mg/day PO, in divided doses * B12 supplementation may be necessary with halfway metformin * Basal insulin: NPH SQ BID - doses to be determined * Prandial insulin: doses to be determined * Please note that the plan above was derived based on current level of insulin resistance and hospital stress. These recommendations are appropriate for inpatient admission only. Plan of care upon discharge will need to be reassessed to avoid potential outpatient hypo/hyperglycemia. Thank you.
[2020-07-07] MEDS ORDERED: INSULIN HUMAN NPH SC SCH (17:00)
[2020-07-07] MEDS: REMDESIVIR 100 MG in SODIUM CHLORIDE 0.9% 230 ML IV SCH (21:05)
[2020-07-07] MEDS: SODIUM CHLORIDE 0.9% 10ML FLUSH IV SCH (21:06)
[2020-07-08] MEDS: dexAMETHasone 4 MG TAB PO SCH (08:54)
[2020-07-08] MEDS: ENOXAPARIN INJ 40 MG/0.4 ML SYR SQ SCH ×2 (08:55→21:11)
[2020-07-08] MEDS: INSULIN HUMAN NPH SC SCH (08:55)
[2020-07-08] MEDS: INSULIN ASPART 100 UNITS/ML 3 ML PEN SC SCH ×4 (09:33→20:54)
--- NOTE | 2020-07-08 11:04 | Pharmacy Report ---
Pharmacy Glycemic Short Note 2 - Date of Service July 08, 2020 - Glycemic Short BSG Results (Last 24 hours): 07/07/20 07/07/20 07/07/20 11:21 16:27 20:55 POC Glucose 197 H 150 H 272 H 07/08/20 07:19 POC Glucose 184 H OUTPATIENT ANTIDIABETIC REGIMEN: * N/A * A1c = 15.1 % (07/05/20) Risk Factors for Insulin Resistance: * Steroids: Dexamethasone 6 mg IV daily * Infection: COVID-19 pneumonia - Remdesivir * Diet: T2DM ASSESSMENT: 07/08: * Patient continues on dexamethasone 6 mg po daily, day 5 of anticipated 10 for COVID-19. Remdesivir day 5 of 5. T2DM diet ordered * Significant post-prandial BSG elevation to 272 mg/dL noted at HS yesterday - will righten CHO ratio * BSG > 300 mg/dL noted at lunch - likely from later AM admin of Novolog. No further tightening required. * AM fasting BSG elevated to 184 mg/dL. Will schedule NPH @ 1700 07/07: * Patient is currently receiving an average of 134 units of insulin per day: * 45 units of basal insulin * 89 units of prandial/correctional insulin * BSGs: 127, 282, 185, 229, 129 mg/dL * Risk factors for insulin resistance remain stable. * Fasting BSG of 112 mg/dL is at goal. Continue weight based NPH. * Post prandial BSGs greatly improved compared to previous days but continue to fluctuate * increase AM dose of NPH to 0.4 units/kg * slightly decrease PM NPH since overnight/AM control looked quite good 07/06: * SR is a 64 year old male from [facility] who presented with shortness of breath/hypoxia and subsequently diagnosed with COVID-19 pneumonia * Currently ordered remdesivir and dexamethasone 6 mg PO daily * Patient is currently receiving an average of 136 units of insulin per day: * 50 units of basal insulin * 86 units of prandial/correctional insulin + 10 unit IV bous * BSGs: 133, 330, 323, 283, 288 mg/dL * Risk factors for insulin resistance remain fairly stable. Dexamethasone was transitioned from IV to PO starting this AM. This may lead to decreased post prandial needs overall, however I anticipate significant steroid induced hyperglycemia to continue. * Continue tight Novolog parameters per patient was poorly controlled yesterday * Fasting BSG of 127 mg/dL is at goal. Continue weight based NPH. PLAN FOR INPATIENT GLYCEMIC CONTROL: * Basal insulin - increase * NPH 40 units SQ with breakfast * NPH 10 units SQ with dinner * Bolus insulin - increase * NovoLog per scale ACHS or Q6hrs while NPO * Goal Range: Low 110 mg/dL - High 140 mg/dL * Correction Factor: 12 mg/dL/unit * Nutritional / Prandial insulin per carb ratio of 1 unit per 3 grams CHO consumed PLAN FOR DISCHARGE: See 07/07 note * Please note that the plan above was derived based on current level of insulin resistance and hospital stress. These recommendations are appropriate for inpatient admission only. Plan of care upon discharge will need to be reassessed to avoid potential outpatient hypo/hyperglycemia. Thank you.
--- NOTE | 2020-07-08 14:13 | Hospitalist Progress Note ---
Date of Service July 08, 2020 Assessment & Plan (1) COVID-19: Covid-19 positive on 07/04. Would be considered a severe case given his hypoxemia. - Started dexamethasone 6 mg daily for 10 days (End date: 07/14/2020). - Remdesivir x 5 days. (End: 07/08/2020) - Patient declined convalescent plasma for me on 07/05 & 07/06. - Supplemental O2 as needed - Improving SpO2 on room air. Now only down to 4-6 L of NC more recently with SpO2>90%. (2) Acute respiratory failure with hypoxia: Procalcitonin negative. No fevers. - Aim O2 sats > 90%. - Hold antibiotics at this time. (3) Type 2 diabetes mellitus: A1c was 15.1% this admission. He reports his HbA1c in September was 6.4%, though this is a huge jump to his present one. - Pharmacy consulted for glycemic control while on steroids - blood sugars have generally been higher today. On NPH 40 units. (4) Non-healing open wound of heel: No surrounding cellulitis. - Local wound care. - MRI results discussed with Dr. Frausto. MRI done on 06/27/2020 at [facility]. No sign of osteomyelitis. (5) DVT prophylaxis: Lovenox 40 mg SQ twice daily per Covid protocol. Admission and Anticipated Discharge Date Admission Date: July 04, 2020 Subjective No pain at present. No shortness of breath and very minimal cough. Is up and out of bed and feeling less cramping. Reports no fevers/chills, chest pain, abdominal pain, nausea, or vomiting. Physical Exam Constitutional: WD/WN, vitals as above Eyes: EOM intact bilaterally; no conjunctival abnormality ENMT: external ear and nose normal, oropharynx normal Neck: trachea midline, no thyromegaly normal visual inspection Respiratory: no respiratory distress and not tachypneic Auscultation: no crackles and no wheezes Cardiovascular: RRR, no murmur, no edema Gastrointestinal (Abdomen): Inspection/Auscultation: abdomen normal to inspection; abdomen not distended Musculoskeletal: no cyanosis or clubbing, extremities motor strength 5/5 Skin: no rashes, warm and dry Neurologic: moves all extremities and awake Psychiatric: Orientation: alert, oriented to person and cooperative Results & Data Results & Data ([place]) Vital Signs (Past 12 Hours) Vital Signs Temp Pulse Pulse Resp BP BP Pulse Ox 07/08/20 11:06 36.8 C 72 19 135/80 94 07/08/20 07:21 36.8 C 65 18 171/105 H 95 PG Care Time/CCT Total # of Minutes Spent Total Time Spent with Patient: Total time spent is greater than 50% in coordination of care (as documented) at patient's floor/unit and/or counseling patient: Coding Level of Care Code 41266 Subseq Hosp Care Lvl 2 Diagnoses COVID-19 U07.1 Acute respiratory failure with hypoxia J96.01 Type 2 diabetes mellitus E11.9 Non-healing open wound of heel S91.309A DVT prophylaxis Z29.9
[2020-07-08] MEDS ORDERED: INSULIN HUMAN NPH SC SCH (17:00)
[2020-07-08] MEDS: REMDESIVIR 100 MG in SODIUM CHLORIDE 0.9% 230 ML IV SCH (21:11)
[2020-07-08] MEDS: SODIUM CHLORIDE 0.9% 10ML FLUSH IV SCH (21:12)
[2020-07-09 07:19] LABS: Hematocrit (blood only) 41.4 % (42-52); Hemoglobin 13.1 g/dL (14.0-18.0); Mean Corpuscular Hemoglobin 25.9 pg (25-34); Mean Corpuscular Hgb Conc 31.6 g/dL (32-36); Mean Platelet Volume 9.8 fL (7.4-10.4); Platelet Count 395 K/uL (130-400); RDW Coefficient of Variation 13.1 % (11.5-14.5); RDW Standard Deviation 39.6 fL (36.4-46.3); Red Blood Count 5.05 M/uL (4.7-6.1); White Blood Count 11.04 K/uL (4.8-10.8)
[2020-07-09 08:12] LABS: BUN Creatinine Ratio 23.3 (10-20); Calcium 9.7 mg/dl (8.5-10.1); Creatinine Clr Calc Pharmacy 99.8 ml/min; Est GFR (African American) 105.2; Est GFR (Non-African American) 90.8; Magnesium 2.2 mg/dl (1.8-2.4); Potassium 4.4 mmol/L (3.5-5.1)
[2020-07-09] MEDS: dexAMETHasone 4 MG TAB PO SCH (08:35)
[2020-07-09] MEDS: ENOXAPARIN INJ 40 MG/0.4 ML SYR SQ SCH ×2 (08:35→20:41)
[2020-07-09] MEDS: INSULIN ASPART 100 UNITS/ML 3 ML PEN SC SCH ×4 (08:37→20:40)
[2020-07-09] MEDS: INSULIN HUMAN NPH SC SCH (08:37)
--- NOTE | 2020-07-09 11:25 | Pharmacy Report ---
Pharmacy Glycemic Short Note 2 - Date of Service July 09, 2020 - Glycemic Short BSG Results (Last 24 hours): 07/08/20 07/08/20 07/09/20 16:13 20:37 06:25 Glucose 182 H POC Glucose 155 H 173 H 07/09/20 07/09/20 07:32 11:10 Glucose POC Glucose 168 H 265 H OUTPATIENT ANTIDIABETIC REGIMEN: * N/A * A1c = 15.1 % (07/05/20) Risk Factors for Insulin Resistance: * Steroids: Dexamethasone 6 mg IV daily * Infection: COVID-19 pneumonia - Remdesivir * Diet: T2DM ASSESSMENT: 07/09 * Stressors stable * AM fasting BSG improved compared to yesterday with increase in evening NPH, but still above goal range. Will again increase evening NPH * Trend of significant post-prandial spike in BSG noted breakfast to lunch, but pre-dinner and HS checks yesterday reasonable after CHO ratio tightened. Will tighten breakfast CHO ratio only to address spike noted pre-lunch. 07/08: * Patient continues on dexamethasone 6 mg po daily, day 5 of anticipated 10 for COVID-19. Remdesivir day 5 of 5. T2DM diet ordered * Significant post-prandial BSG elevation to 272 mg/dL noted at HS yesterday - will righten CHO ratio * BSG > 300 mg/dL noted at lunch - likely from later AM admin of Novolog. No further tightening required. * AM fasting BSG elevated to 184 mg/dL. Will schedule NPH @ 1700 07/07: * Patient is currently receiving an average of 134 units of insulin per day: * 45 units of basal insulin * 89 units of prandial/correctional insulin * BSGs: 127, 282, 185, 229, 129 mg/dL * Risk factors for insulin resistance remain stable. * Fasting BSG of 112 mg/dL is at goal. Continue weight based NPH. * Post prandial BSGs greatly improved compared to previous days but continue to fluctuate * increase AM dose of NPH to 0.4 units/kg * slightly decrease PM NPH since overnight/AM control looked quite good 07/06: * SR is a 64 year old male from [facility] who presented with shortness of breath/hypoxia and subsequently diagnosed with COVID-19 pneumonia * Currently ordered remdesivir and dexamethasone 6 mg PO daily * Patient is currently receiving an average of 136 units of insulin per day: * 50 units of basal insulin * 86 units of prandial/correctional insulin + 10 unit IV bous * BSGs: 133, 330, 323, 283, 288 mg/dL * Risk factors for insulin resistance remain fairly stable. Dexamethasone was transitioned from IV to PO starting this AM. This may lead to decreased post prandial needs overall, however I anticipate significant steroid induced hyperglycemia to continue. * Continue tight Novolog parameters per patient was poorly controlled yesterday * Fasting BSG of 127 mg/dL is at goal. Continue weight based NPH. PLAN FOR INPATIENT GLYCEMIC CONTROL: * Basal insulin - increase * NPH 40 units SQ with breakfast * NPH 10 units SQ with dinner * Bolus insulin - increase * NovoLog per scale ACHS or Q6hrs while NPO * Goal Range: Low 110 mg/dL - High 140 mg/dL * Correction Factor: 12 mg/dL/unit * Nutritional / Prandial insulin per carb ratio of 1 unit per 3 grams CHO consumed PLAN FOR DISCHARGE: See 07/07 note * Please note that the plan above was derived based on current level of insulin resistance and hospital stress. These recommendations are appropriate for inpatient admission only. Plan of care upon discharge will need to be reassessed to avoid potential outpatient hypo/hyperglycemia. Thank you.
--- NOTE | 2020-07-09 14:30 | Hospitalist Progress Note ---
Date of Service July 09, 2020 Assessment & Plan (1) COVID-19: Covid-19 positive on 07/04. Would be considered a severe case given his hypoxemia. - Started dexamethasone 6 mg daily for 10 days (End date: 07/14/2020). - Remdesivir x 5 days. (Ended: 07/08/2020) - Patient declined convalescent plasma for me on 07/05 & 07/06. - Supplemental O2 as needed - Improving SpO2. Now only on 3L NC. Can go back to the long-term tomorrow if they have a bed. (2) Acute respiratory failure with hypoxia: Procalcitonin negative. No fevers. - Aim O2 sats > 90%. - Hold antibiotics at this time. (3) Type 2 diabetes mellitus: A1c was 15.1% this admission. He reports his HbA1c in September was 6.4%, though this is a huge jump to his present one. - Pharmacy consulted for glycemic control while on steroids - blood sugars have generally been higher today. On NPH 40 units. (4) Non-healing open wound of heel: No surrounding cellulitis on exam on 07/09. MRI results discussed with Dr. Frausto. MRI done on 06/27/2020 at [facility]. No sign of osteomyelitis. - Local wound care (5) DVT prophylaxis: Lovenox 40 mg SQ twice daily per Covid protocol. Admission and Anticipated Discharge Date Admission Date: July 04, 2020 Subjective Doing well today. No shortness of breath. Reports no fevers/chills, chest pain, shortness of breath, abdominal pain, nausea, or vomiting. Physical Exam Constitutional: WD/WN, vitals as above Eyes: EOM intact bilaterally; no conjunctival abnormality ENMT: external ear and nose normal, oropharynx normal Neck: trachea midline, no thyromegaly normal visual inspection Respiratory: no respiratory distress and not tachypneic Auscultation: no crackles and no wheezes Cardiovascular: RRR, no murmur, no edema Gastrointestinal (Abdomen): Inspection/Auscultation: abdomen normal to inspection; abdomen not distended Musculoskeletal: no cyanosis or clubbing, extremities motor strength 5/5 Skin: no rashes, warm and dry Neurologic: moves all extremities and awake Psychiatric: Orientation: alert, oriented to person and cooperative Results & Data Results & Data ([facility]) Vital Signs (Past 12 Hours) Vital Signs Temp Pulse Pulse Resp BP BP Pulse Ox 07/09/20 11:11 36.8 C 72 20 135/80 90 07/09/20 08:00 36.8 C 69 18 141/82 H 92 PG Care Time/CCT Total # of Minutes Spent Total Time Spent with Patient: Total time spent is greater than 50% in coordination of care (as documented) at patient's floor/unit and/or counseling patient: Coding Level of Care Code 45696 Subseq Hosp Care Lvl 2 Diagnoses COVID-19 U07.1 Acute respiratory failure with hypoxia J96.01 Type 2 diabetes mellitus E11.9 Non-healing open wound of heel S91.309A DVT prophylaxis Z29.9
[2020-07-09] MEDS ORDERED: INSULIN HUMAN NPH SC SCH (16:30)
[2020-07-10] MEDS ORDERED: INSULIN ASPART 100 UNITS/ML 3 ML PEN SC SCH (07:30)
[2020-07-10] MEDS: dexAMETHasone 4 MG TAB PO SCH (08:44)
[2020-07-10] MEDS: ENOXAPARIN INJ 40 MG/0.4 ML SYR SQ SCH ×2 (08:45→08:51)
[2020-07-10] MEDS: INSULIN HUMAN NPH SC SCH (08:46)
--- NOTE | 2020-07-10 09:29 | Pharmacy Report ---
PHA: Glycemic Control AP - Date of Service July 10, 2020 - Assessment & Plan PLAN FOR DISCHARGE: A1c = 15.1% (07/05/20) A1c is greater than or equal to 10%: consider triple therapy with metformin + basal insulin + prandial insulin. Recommend: * Metformin XR 500mg PO daily with evening meal. Typically the XR formulation of metformin is better tolerated than the immediate release formulation. Continue to titrate metformin dosing upwards as recommended. Dosage increases should be made in increments of 500 mg weekly, up to 2,000 mg/day PO, given in divided doses. Doses above 2000 mg/day may be better tolerated if divided and given 3 times per day with meals. Max: 2,550 mg/day PO, in divided doses * B12 supplementation may be necessary with chcf metformin WHILE ON DEXAMETHASONE AN OUTPATIENT * Basal insulin: NPH 40 units SC with breakfast and 15 units SC with dinner * Prandial insulin: * 15 units with low CHO meals, 25 units with high CHO meals. * Additional correctional as follows: * 1 unit for BSG 140-155 mg/dL * 2 units for BSG 156-170 mg/dL * 3 units for BSG 117-185 mg/dL * 4 units for BSG 186-200 mg/dL * 5 units for BSG 201-215 mg/dL * 6 units for BSG 216-230 mg/dL * 7 units for BSG 231-245 mg/dL * 8 units for BSG 231-245 mg/dL * 9 units for BSG 246-260 mg/dL * 10 units for BSG 261 mg/dL and above PLEASE NOTE THAT THIS REGIMEN WILL NEED TO BE RE-EVALUATED AN OUTPATIENT WHEN DEXAMETHASONE IS DISCONTINUED
[2020-07-10] MEDS: INSULIN ASPART 100 UNITS/ML 3 ML PEN SC SCH (12:30)
--- NOTE | 2020-07-19 07:34 | Discharge Summary ---
Date of Service July 10, 2020 Admission HPI Per Admitting Provider Dilan Rojas is a 64-year-old male from [facility] with shortness of breath and hypoxia. Symptoms started 8 days ago with generalized myalgias and shortness of breath. 5 days ago he started having loss of taste and smell. He has been self isolating at the long term from 8 days ago. Progressively getting worse symptoms over this time period and he was noted to be hypoxic at the long term therefore was transported to the ER for evaluation. He denies any fever, chills, productive cough, abdominal pain, chest pain, diarrhea. He reports a possible history of T2DM which is also on his medical chart. However he is not on any medication for this. When discussed with [facility] they confirmed his HbA1C in September of 6.4 but recently on 06/27 he had a repeat test showing HbA1C 14.4 (I did confirm this was not a hemoglobin on multiple occasions). He is a former smoker with possible diagnosis of COPD although is not on any maintenance inhalers for this. He has noticed no wheezing. He has a non-healing ulcer on the bottom of his left foot although reports this is much improved with just his local wound care he performs himself. Recently he had an MRI to assess for osteomyelitis although is still awaiting the result for this. In the ER he tested positive for SARS-COV-2. CXR concerning for patchy airspaces b/l. Principal Diagnosis covid 19 Discharge Exam Constitutional: WD/WN, vitals as above Eyes: EOM intact bilaterally; no conjunctival abnormality ENMT: external ear and nose normal, oropharynx normal Neck: trachea midline, no thyromegaly normal visual inspection Respiratory: no respiratory distress and not tachypneic Auscultation: no crackles and no wheezes Cardiovascular: RRR, no murmur, no edema Gastrointestinal (Abdomen): Inspection/Auscultation: abdomen normal to inspection; abdomen not distended Musculoskeletal: no cyanosis or clubbing, extremities motor strength 5/5 Skin: no rashes, warm and dry Neurologic: moves all extremities and awake Psychiatric: Orientation: alert, oriented to person and cooperative Discharge Data Allergies Allergy/AdvReac Type Severity Reaction Status Date / Time OC [place] Contradiction AdvReac Unknown Uncoded 07/04/20 14:10 Consultations 07/04/20 12:55 ED Decision to Admit Stat 07/04/20 16:15 Consult Health Information Management Routine Diabetes Follow up Diabetes Follow-up Needed for HgbA1c >9% Hospital Course (1) COVID-19: Covid-19 positive on 07/04. Would be considered a severe case given his hypoxemia. - Started dexamethasone 6 mg daily for 10 days (End date: 07/14/2020). - Remdesivir x 5 days. (Ended: 07/08/2020) - Patient declined convalescent plasma for me on 07/05 & 07/06. - Supplemental O2 as needed - Improving SpO2. Now only on 2L NC. Can go back to the long term . (2) Acute respiratory failure with hypoxia: Procalcitonin negative. No fevers. - Aim O2 sats > 90%. - Hold antibiotics at this time. (3) Type 2 diabetes mellitus: A1c was 15.1% this admission. He reports his HbA1c in September was 6.4%, though this is a huge jump to his present one. - Pharmacy consulted for glycemic control while on steroids - blood sugars have generally been higher today. On NPH 40 units. (4) Non-healing open wound of heel: No surrounding cellulitis on exam on 07/09. MRI results discussed with Dr. Frausto. MRI done on 06/27/2020 at [facility]. No sign of osteomyelitis. - Local wound care (5) DVT prophylaxis: Lovenox 40 mg SQ twice daily per Covid protocol. Total Time Total Time Spent Total Time Spent (In Minutes): 32 Total Time Includes: Examination of the Patient, Discharge Planning and Dc dication Reconciliation Discharge Plan Discharge Items [facility]position[facility] Reason For Visit: ACUTE HYPOXIC RESP FAILURE,COVID 19 Discharge Diagnosis: Acute hypoxic resp failure Activity: Resume your previous activity Non-emergency contact: Primary Care Provider Call non-emergency contact if: you have any medication questions Follow-up/Referrals: Mukesh MIRELES [Primary Care Provider] - Diet: Carb Consistent or DM2 Addtl Attending Provider Instructions: Metformin XR 500mg PO daily with evening meal. Typically the XR formulation of metformin is better tolerated than the immediate release formulation. Continue to titrate metformin dosing upwards as recommended. Dosage increases should be made in increments of 500 mg weekly, up to 2,000 mg/day PO, given in divided doses. Doses above 2000 mg/day may be better tolerated if divided and given 3 times per day with meals. Max: 2,550 mg/day PO, in divided doses B12 supplementation may be necessary with residential metformin WHILE ON DEXAMETHASONE AN OUTPATIENT Basal insulin: NPH 40 units SC with breakfast and 15 units SC with dinner Prandial insulin: 15 units with low CHO meals, 25 units with high CHO meals. Additional correctional as follows: 1 unit for BSG 140-155 mg/dL 2 units for BSG 156-170 mg/dL 3 units for BSG 117-185 mg/dL 4 units for BSG 186-200 mg/dL 5 units for BSG 201-215 mg/dL 6 units for BSG 216-230 mg/dL 7 units for BSG 231-245 mg/dL 8 units for BSG 231-245 mg/dL 9 units for BSG 246-260 mg/dL 10 units for BSG 261 mg/dL and above PLEASE NOTE THAT THIS REGIMEN WILL NEED TO BE RE-EVALUATED AN OUTPATIENT WHEN DEXAMETHASONE IS DISCONTINUED Coronavirus disease 2019 (COVID-19) is a virus that causes a respiratory illness. It is caused by a coronavirus called 2019 novel coronavirus (2019- nCoV). There are many types of coronavirus. Coronaviruses are a very common cause of bronchitis. They may sometimes cause lung infection(pneumonia). Symptoms can range from mild to severe respiratory illness. These viruses are also foundin some animals. COVID-19 was first found in people in [place], in late 2018. In 2020, several cases of COVID-19 have been confirmed in the [place] Public health officials are working to find the source. How the virus spreads is not yet fully known. It may be spread through droplets of fluid that a person coughs or sneezes into the air. It may be spread if you touch a surface with virus on it, such as a handle or object, and then touch your mouth. What are the symptoms of COVID-19? Some people have no symptoms or mild symptoms. Symptoms may appear 2 to 14 days after contact with the virus. Symptoms can include: Fever Coughing Trouble breathing What are possible complications from COVID-19? In many cases, this virus can cause infection (pneumonia) in both lungs. In some cases, this can cause . How is COVID-19 diagnosed? Your healthcare provider will ask about your symptoms. He or she will also ask about your recent travel and contact with sick people. Testing for the virus is only done through the CDC. If yourhealthcare provider thinks you may have COVID- 19, he or she will work with your local health department and the CDC on testing. Follow all instructions from your healthcare provider. COVID-19 is diagnosed by: Nasal and throat swab. A cotton-tipped swab is wiped inside your nose or throat. This is done to check for viruses in your nasal mucus. Sputum culture. A small sample of mucus coughed from your lungs (sputum) is collected if you have a cough. It is checked for the virus. How is COVID-19 treated? There is currently no medicine to treat the virus. Treatment is done to help your body while it fights the virus. This is known as supportive care. Supportive care may include: Pain medicine. These include acetaminophen and ibuprofen. They are used to help ease pain and reduce fever. Bed rest. This helps your body fight the illness. For severe illness, you may need to stay in the hospital. Care during severe illness may include: IV (intravenous) fluids.These are given through a vein to help keep your body hydrated. Oxygen. Supplemental oxygen or ventilation with a breathing machine (ventilator) may be given. This is done to keep enough oxygen in your body. Are you at risk for COVID-19? If youve been to a place where people have been sick with this virus, you are at risk for infection. You are at risk if you: Recently traveled to an affected area Had contact with a sick person who recently traveled to this area Had contact with a person who was diagnosed with COVID-19 How can COVID-19 be prevented? There is no vaccine yet. The best prevention is to not have contact with the virus. The CDC advises that people should not travel to areas where there are COVID-19 outbreaks right now for any reason that is not urgent. To help prevent spreading the infection, wash your hands often, or use an alcohol-basedhand manager publishing. If you are in an area with COVID-19: Wash your hands often. Or use an alcohol-based hand manager publishing often. Only touch your eyes, nose, or mouth with clean hands. Dont have contact with people who are sick. Follow local instructions about being in public. For example, you may be told to not use public transport for a period of time. Stay away from markets that have live or animals. Wash your hands after touching any animals. Don't touch animals that may be sick. Dont share eating or drinking tools with sick people. Dont kiss someone who is sick. Clean surfaces often with disinfectant. If you were in an area with COVID-19 in the last 14 days: Call your healthcare provider. He or she can talk with local health staff to see what action may be needed. Follow all instructions from your provider. Take your temperature every morning and evening for at least 14 days. This is to check for fever. Keep a record of the readings. Keep watch for symptoms of the virus. Tell your provider right away if you have symptoms. If you were in an area with COVID-19 and have a fever or other symptoms: Dont panic. Keep in mind that other illnesses can cause similar symptoms. Stay away from work, school, and public places. Limit physical contact with family members. Don't kiss anyone or share eating or drinking utensils. Clean surfaces you touch with disinfectant. This is to help prevent the virus from spreading. Call your healthcare provider. Explain that you have been exposed to COVID-19 and have symptoms. Do this before going to any hospital. Wait for instructions. Keep in mind that healthcare staff may wear protective equipment such as masks, gowns, gloves, and eye protection. You may be put in a separate room. This is to prevent the possible virus from spreading. Tell the healthcare staff about recent travel. This includes local travel on public transport. Staff may need to find other people you have been in contact with. Follow all instructions the healthcare staff give you. If you have been diagnosed with COVID-19 Follow all instructions from your healthcare provider. Dont leave your home, except to get medical care. Call your healthcare providers office before going. They can prepare and give you instructions. This will help prevent the virus from spreading. Dont go to work, school, or public areas. Dont use public transport or taxis. Stay away from other people in your home. Have them wear face masks around you. Dont share household items or food. Wear a face mask if you can. This includes at home or in a medical facility. Cover your face with a tissue when you cough or sneeze. Throw the tissue away. Wash your hands. Wash your hands often. Caregivers should: Follow all instructions from healthcare staff. Wear a face mask and protective clothing as advised. Wash hands often. Keep track of the sick persons symptoms. Clean surfaces, fabrics, and laundry thoroughly. Keep other people away from the sick person. When to call your healthcare provider Call your healthcare provider: If youve recently traveled and have symptoms If you have been diagnosed with COVID-19 and your symptoms are worse To learn more To find out more about COVID-19, visit the CDC website at www.cdc.gov/coronavirus/2019-ncov/index.html. 1848[address] [employer]. [address] [place], [place] [address]. All rights reserved. This information is not intended as a substitute for professional medical care. Always follow your healthcare professional's instructions. This information has been adapted from [employer] Pending Studies at Discharge: No Stand-Alone Forms: My [facility] Skilled Items Patient informed of condition?: Yes Discharge Level of Care: Other Communicable Disease: Yes Discharge Prognosis: Stable Lines: None Urinary Catheter: No Medications and DC Order Prescriptions: New Novolin N NPH U-100 Insulin 100 unit/mL Suspension 40 unit SC DAILY Qty: 10 RF: 0 Novolin N NPH U-100 Insulin 100 unit/mL Suspension 15 unit SC QDD Qty: 10 RF: 0 metformin 500 mg tablet extended release 24hr 500 mg PO DAILY Qty: 30 RF: 0 insulin aspart U-100 [Novolog Flexpen U-100 Insulin] 100 unit/mL (3 mL) Insulin Pen See Rx Instructions .ROUTE .COMPLEX Qty: 15 RF: 0 Continued amlodipine 10 mg Tablet 10 mg PO DAILY RF: 0 Changed lisinopril 20 mg Tablet 10 mg PO DAILY Qty: 0 RF: 0 Discharge Orders: Discharge Order (Routine); Ordered 07/10/20 Ordered By: Hakeem Beltre Admission Data Admit Date/Time: 07/04/20 13:19 Attending Provider: Hakeem Beltre Admit Provider: Ramin Garza Primary Care Provider: Mukesh MIRELES Other Providers: Lito Ya Other Interventions: Discharge Summary Assessment (RN) Last Done: 07/10/20 11:17 Coding Level of Care Code D/C Day Management >30 mins Diagnoses COVID-19 U07.1 Acute respiratory failure with hypoxia J96.01 Type 2 diabetes mellitus E11.9 Non-healing open wound of heel S91.309A DVT prophylaxis Z29.9 Time Spent (min) 32
--- NOTE | 2020-07-24 10:18 | Coding Query ---
To promote full compliance with coding requirements relating to patient care, provider participation is requested in all cases of health information coder uncertainty. Please assist us with the question(s) below: Coding Question(s): The diagnosis below was documented in the ER H&P, then subsequently fell off all further documentation. Please indicate if it is still a possible diagnosis or ruled out. Physician's Response(s): COMMUNITY ACQUIRED PNEUMONIA ( ) Diagnosed and POA ( ) Diagnosed and not POA ( x ) Ruled out ( ) Other (please specify) MTDD
== END 2020-07-10 16:03 | DRG 177 ==
LOC: ED 11:47 → 3E 13:19 → SUATTDRO 13:19 → 3E 15:43 → 2E 07-05 16:18